=== PATIENT | female | born 1960 | race African-American/Black ===

== ENCOUNTER 2017-12-10 12:05 | Emergency (ER) | payer BC ==
[~2017-12-10] VITALS: Ht 165.1 cm; Wt 62.6 kg
[~2017-12-10 12:05] MED LIST: AMBIEN10 MG PO; AMLODIPINE BESYL5 MG PO; LEXAPRO; MELOXICAM7.5 MG PO; OMEPRAZOLE40 MG
--- OUTSIDE RECORDS SUMMARY | 2017-12-10 12:07 | XMS REPORT | Clinical Summary ---
Author Author [facility] Organization [facility] Address Unknown Phone Unavailable Care Team Providers Care Community Affairs Manager Name Role Phone David Aquino DO PCP Allergies Not on File Current Medications Not on file Active Problems Not on file Encounters Date Type Specialty Care Team Description 02/01/2017 Hospital Radiology Carolyn Guadalupe Visit for screening Encounter MD [facility] mammogram 01/30/2017 Transcribe Access Carolyn Guadalupe Visit for screening Orders MD [facility] mammogram (Primary Dx) after 12/09/2016 Social History Tobacco Use Types Packs/Day Years Used Date Never Assessed Sex Assigned at Date Recorded Not on file Last Filed Vital Signs Not on file Plan of Treatment Health Maintenance Due Date Last Done Comments PAP SMEAR 1983 COLONOSCOPY 2012 INFLUENZA VACCINE 03/21/2018 MAMMOGRAM 02/01/2019 02/01/2017, 02/03/2016 Results * Mammo Breast Screen Tomosynthesis Bilateral (02/01/2017 3:40 PM) Specimen Performing Laboratory [facility] [address] [place] [address] Narrative PROCEDURE: MAMMO BREAST SCREEN TOMOSYNTHESIS BILATERAL Computer aided detection was utilized for the interpretation of the digital bilateral screening mammography with tomosynthesis. CLINICAL HISTORY: The patient has no personal or family history of breast cancer. She has no current breast complaints. COMPARISON: 02/03/2016 DENSITY: The breasts are heterogeneously dense which can obscure the detection of small masses Left breast: There is no specific mammographic feature of malignancy Right breast: There is no specific mammographic feature of malignancy IMPRESSION:No mammographic evidence of malignancy. RECOMMENDATION: Annual mammography if there is no interval change in the physical examination ACR BI-RADS Category 2. Benign findings. There has been no significant interval change as compared to prior studies [id number] after 12/09/2016 Insurance Payer Benefit Subscriber ID Type Phone Address Plan / Group BCBS BCBS xxxxxxxxxxxx PPO [employer] PPO/[place] [address]
[2017-12-10] MEDS ORDERED: ONDANSETRON HCL 4 MG ORAL DISINTEGRATING TAB PO ONE (13:00)
[2017-12-10] MEDS ORDERED: HYDROMORPHONE 1MG/1ML INJ IM ONE (13:30)
== END 2017-12-10 14:05 | disposition home or self-care (01) ==
LOC: ER 12:05
DX: M25.512 Pain in left shoulder (principal); M79.622 Pain in left upper arm; M25.522 Pain in left elbow; M79.632 Pain in left forearm; M25.532 Pain in left wrist; M79.642 Pain in left hand; M54.12 Radiculopathy, cervical region; I10 Essential (primary) hypertension
CPT/HCPCS: 93005; 99283; J1170

== ENCOUNTER 2020-12-02 15:23 | Emergency (ER) | payer BC ==
[~2020-12-02] VITALS: Ht 165.1 cm; Wt 62.6 kg
[2020-12-02] MEDS ORDERED: KETOROLAC TROMETHAMINE 60 MG/2 ML VIAL IM ONE (15:45)
[2020-12-02 18:19] VITALS: BP 154/104
== END 2020-12-02 18:20 | disposition home or self-care (01) ==
LOC: ER 15:43
DX: S16.1XXA Strain of muscle, fascia and tendon at neck level, initial encounter (principal); M06.9 Rheumatoid arthritis, unspecified; I10 Essential (primary) hypertension; K21.9 Gastro-esophageal reflux disease without esophagitis
CPT/HCPCS: 72125; 99283; J1885

== ENCOUNTER → 2021-01-07 | Day surgery (SDC) | payer BC ==
[~2021-01-07] MED LIST changes: +ARAVA20 MG PO; +ASPIRIN81 MG PO; +DYRENIUM50 MG PO; +IOPAMIDOL 200 MG/ML 20 ML VIAL IT ONE; +IRON PO; +LIDOCAINE HCL 1% 30ML-PF VIAL ONE; +LIDOCAINE HCL 2% LOCAL INJ 5 ML SDV VIAL INJ ONE; +METOPROLOL TART25 MG PO; +MIDAZOLAM HCL 2 MG/2 ML VIAL ONE; +NEURONTIN100 MG PO; -OMEPRAZOLE40 MG; +OMEPRAZOLE40 MG PO; +POVIDONE IODINE 0.05% 0.05 % ML PO ONE; +PROPOFOL IV EMULSION 10 MG/ML 20 ML VIAL ONE; +SUCRALFATE1 GM PO; +TRIAMCINOLONE ACET 40 MG/ML VIAL ONE; +VITAMIN B12 INJ; +VITAMIN D PO
[2021-01-07 08:40] VITALS: BP 124/88
== END | disposition home or self-care (01) ==
LOC: OR 06:03
PROVIDERS: ATTEND Physical Medicine & Rehabilitation Pain Medicine
DX: M47.892 Other spondylosis, cervical region (principal); M54.12 Radiculopathy, cervical region; M06.9 Rheumatoid arthritis, unspecified; M26.609 Unspecified temporomandibular joint disorder, unspecified side; I10 Essential (primary) hypertension; K21.9 Gastro-esophageal reflux disease without esophagitis; B19.20 Unspecified viral hepatitis C without hepatic coma; F41.9 Anxiety disorder, unspecified; Z01.810 Encounter for preprocedural cardiovascular examination; Z01.812 Encounter for preprocedural laboratory examination; Z20.822 Contact with and (suspected) exposure to COVID-19; Z79.82 Long term (current) use of aspirin; Z87.891 Personal history of nicotine dependence
CPT/HCPCS: 64490; 93005; J2001 ×2; J2250; J2704; J3301; Q9967; U0002; 77003

== ENCOUNTER → 2021-02-04 | Day surgery (SDC) | payer BC ==
[~2021-02-04] MED LIST changes: +DEXAMETHASONE SOD PHOS 10 MG/1 ML VIAL ONE; +FENTANYL CITRATE/PF 100MCG/2 ML INJ ONE; -LIDOCAINE HCL 2% LOCAL INJ 5 ML SDV VIAL INJ ONE; -POVIDONE IODINE 0.05% 0.05 % ML PO ONE; -PROPOFOL IV EMULSION 10 MG/ML 20 ML VIAL ONE; -TRIAMCINOLONE ACET 40 MG/ML VIAL ONE
[2021-02-04 06:55] VITALS: BP 140/94
== END | disposition home or self-care (01) ==
LOC: OR 06:18
PROVIDERS: ATTEND Physical Medicine & Rehabilitation Pain Medicine
DX: M54.12 Radiculopathy, cervical region (principal); M47.892 Other spondylosis, cervical region; M06.9 Rheumatoid arthritis, unspecified; I10 Essential (primary) hypertension; Z79.82 Long term (current) use of aspirin; Z86.19 Personal history of other infectious and parasitic diseases; Z87.891 Personal history of nicotine dependence
CPT/HCPCS: 64479; J1100; J2001; J2250; J3010; Q9967; 77003

== ENCOUNTER → 2021-09-16 | Day surgery (SDC) | payer BC ==
[~2021-09-16] MED LIST changes: +KETOROLAC TROMETHAMINE 30 MG/ML VIAL ONE; +LABETALOL HCL 0 ML ONE; +LIDOCAINE HCL 2% LOCAL INJ 5 ML SDV VIAL INJ ONE; +POVIDONE IODINE 0.05% 0.05 % ML PO ONE; +PROPOFOL IV EMULSION 10 MG/ML 20 ML VIAL ONE
[2021-09-16 07:40] VITALS: BP 133/94
== END | disposition home or self-care (01) ==
LOC: OR 06:10
PROVIDERS: ATTEND Physical Medicine & Rehabilitation Pain Medicine
DX: M54.12 Radiculopathy, cervical region (principal); M06.9 Rheumatoid arthritis, unspecified; G89.29 Other chronic pain; I10 Essential (primary) hypertension; K21.9 Gastro-esophageal reflux disease without esophagitis; F41.9 Anxiety disorder, unspecified; Z01.810 Encounter for preprocedural cardiovascular examination; Z01.812 Encounter for preprocedural laboratory examination; Z20.822 Contact with and (suspected) exposure to COVID-19; Z79.82 Long term (current) use of aspirin; Z79.899 Other long term (current) drug therapy; Z71.6 Tobacco abuse counseling; Z86.19 Personal history of other infectious and parasitic diseases; Z87.891 Personal history of nicotine dependence
CPT/HCPCS: 64479; 93005; J1100; J1885; J2001 ×2; J2250; J2704; J3010; Q9967; U0002; 77003

== ENCOUNTER → 2021-09-30 | Day surgery (SDC) | payer BC ==
[~2021-09-30] MED LIST changes: +ACETAMINOPHEN 1000 MG/100 ML 100 ML IV ONE; -LABETALOL HCL 0 ML ONE
[2021-09-30 07:50] VITALS: BP 146/98
== END | disposition home or self-care (01) ==
LOC: OR 06:11
PROVIDERS: ATTEND Physical Medicine & Rehabilitation Pain Medicine
DX: M54.12 Radiculopathy, cervical region (principal); M47.812 Spondylosis without myelopathy or radiculopathy, cervical region; M06.9 Rheumatoid arthritis, unspecified; B19.9 Unspecified viral hepatitis without hepatic coma; I10 Essential (primary) hypertension; Z01.812 Encounter for preprocedural laboratory examination; Z20.822 Contact with and (suspected) exposure to COVID-19; Z79.82 Long term (current) use of aspirin; Z79.899 Other long term (current) drug therapy; Z87.891 Personal history of nicotine dependence
CPT/HCPCS: 64479; J0131; J1100; J1885; J2001 ×2; J2250; J2704; J3010; Q9967; U0002; 77003